=== PATIENT | female | born 1980 | race Caucasian/White ===

== ENCOUNTER 2018-12-12 18:28 | Emergency (ER) | payer BC, OTHER ==
--- NOTE | 2018-12-12 18:43 | PDOC ---
Rapid Medical Evaluation Time Seen by Provider: 12/12/18 18:41 Medical Evaluation: 12/12/18 18:41 HPI: splinter when putting together a shelf PE: splinter dorsum of hand ORDERS: X-ray tetanus UTD Discharge Disposition - Diagnosis Splinter - Referrals - Patient Instructions - Post Discharge Activity
[2018-12-12 18:46] VITALS: BP 127/58; PULSE 78; TEMP 97.8; BMI 29.2
[2018-12-12] MEDS ORDERED: DIPHTH,PERTUSS(ACELL),TET 0.5 ML DISP.SYRIN IM ONE ×2 (19:20→19:54)
[2018-12-12] MEDS ORDERED: AMOX TR/POT CLAV 875MG/125MG TABLETS (FP) PO ONE (19:40)
--- NOTE | 2018-12-12 19:44 | PDOC ---
History of Present Illness - General Chief Complaint: Foreign Body (FB) Stated Complaint: R HAND SPLINTER Time Seen by Provider: 12/12/18 18:41 History Source: Patient - History of Present Illness Initial Comments: 12/12/18 20:22 Chief complaint: Splinter to hand Patient is a healthy 38-year-old female who states she was building a shelf and a piece of wood came off and went into her right hand. Patient does not know when her last tetanus was. GENERAL/CONSTITUTIONAL: No fever, weakness. dizziness HEAD, EYES, EARS, NOSE AND THROAT: No change in vision. No ear pain or discharge. No sore throat. CARDIOVASCULAR: No chest pain RESPIRATORY: No shortness of breath or cough GASTROINTESTINAL: No pain, nausea, vomiting, diarrhea or constipation GENITOURINARY: No dysuria MUSCULOSKELETAL: No neck or back pain SKIN: No rash, + are and body NEUROLOGIC: No headache, vertigo, loss of consciousness, or loss of sensation. GENERAL: The patient is awake, alert, and fully oriented, in no acute distress. HEAD: Normal with no signs of trauma. EYES: Pupils equal, round and reactive to light, sclera anicteric, conjunctiva clear. ENT: pharynx: no erythema, no exudate, uvula midline NECK: supple CHEST: clear, nontender, rr ABD: soft, nontender BACK: no tenderness or signs of injury EXTREMITIES: Right hand with visible large splinter cross the dorsum of the proximal phalanx, third finger embedded with 1 visible side, other and is visible under the skin. Patient is able to flex and extend, neurovascular intact , no signs of infection. Rest of extremities, normal range of motion, no edema. NEUROLOGICAL: Normal speech, normal gait. SKIN: Warm, Dry Past History - Past Medical History Allergies/Adverse Reactions: Allergies Allergy/AdvReac Type Severity Reaction Status Date / Time No Known Allergies Allergy Verified 12/12/18 19:52 Home Medications: Ambulatory Orders Amox-Tr/K Cl [Augmentin - 875Mg Tablet] 1 tab PO BID #14 tablet 12/12/18 Anemia: No Asthma: No Cancer: No Cardiac Disorders: No COPD: No CHF: No - Immunization History Immunization Up to Date: Yes - Suicide/Smoking/Psychosocial Hx Smoking History: Never smoked *Physical Exam - Vital Signs Last Vital Signs Temp Pulse Resp BP Pulse Ox 97.8 F 78 20 127/58 L 99 12/12/18 18:44 12/12/18 18:44 12/12/18 18:44 12/12/18 18:44 12/12/18 18:44 Procedures - Additional Procedures Additional Procedures: other Progress: 12/12/18 20:25 Foreign body removal. Area cleaned with Betadine, local anesthesia with 2% lidocaine, Wood splinter gently removed through the opening, removed whole, no other pieces felt under the skin. Area was well irrigated, bacitracin and Band- Aid. Patient has full range of motion, flexion and extension of the digit, neurovascular intact. Medical Decision Making - Medical Decision Making 12/12/18 20:26 X-ray shows no fracture, no visible foreign body Foreign body removed, patient aware of high risk for infection, will follow up with hand surgeon tomorrow, take Augmentin and return if any redness, fever, uncontrolled pain. Discussed issues, findings, results, applicable medications and treatments and follow-up. All these were understood and all questions were answered *DC/Admit/Observation/Transfer Diagnosis at time of Disposition: Foreign body hand Qualifiers: Encounter type: initial encounter Laterality: right Qualified Code(s): S60.551A - Superficial foreign body of right hand, initial encounter - Discharge Dispostion Disposition: HOME Condition at time of disposition: Stable Decision to Admit order: No - Prescriptions Prescriptions: Amox-Tr/K Cl [Augmentin - 875Mg Tablet] 1 tab PO BID #14 tablet - Referrals Referrals: Ramandeep Handy MD [Primary Care Provider] - Eddie Ball MD [Staff Physician] - - Patient Instructions Printed Discharge Instructions: DI for Removal of Foreign Body From Skin Additional Instructions: Take the Augmentin every 12 hours for 7 days Clean with soap and water 2-3 times daily, apply bacitracin Have her reevaluated if redness, pus, fever or getting worse Followup with your and surgeon tomorrow - Post Discharge Activity
[2018-12-12] MEDS ORDERED: AMOX TR/POT CLAV 875MG/125MG TABLETS (FP) ONE (19:54)
== END 2018-12-12 19:52 | disposition home or self-care (01) ==
LOC: JERFT 18:28
PROC: 3E0234Z Introduction of Serum, Toxoid and Vaccine into Muscle, Percutaneous Approach (ICD-10-PCS; principal; 2018-12-12)
PROC: 0JCJ3ZZ Extirpation of Matter from Right Hand Subcutaneous Tissue and Fascia, Percutaneous Approach (ICD-10-PCS; 2018-12-12)
DX: S60.551A Superficial foreign body of right hand, initial encounter (principal); X58.XXXA Exposure to other specified factors, initial encounter; Y93.89 Activity, other specified; Y92.9 Unspecified place or not applicable
CPT/HCPCS: 73130-TC-RT-FY; 90715; 99282-25